=== PATIENT | female | born 1980 | race Caucasian/White ===

== ENCOUNTER 2016-11-29 05:57 | Observation (INO) | payer OTHER ==
[~2016-11-29] VITALS: Ht 154.9 cm; Wt 93.4 kg
[~2016-11-29 05:57] MED LIST: CELE200C PO; GABA300C5 PO; HYDR-3583 PO; IBUP800T23 PO; METF500T PO; MULT-135 PO; RANI150T PO; TIZA4CAP3 PO; TRIAPOW43; VITA100064 PO
[2016-11-29] MEDS ORDERED: BUPIVACAINE/EPINEPHRINE 0.5% 50 ML VIAL ONE (07:03)
[2016-11-29] MEDS ORDERED: VANCOMYCIN HCL 1000 MG VIAL ONE (07:03)
[2016-11-29] MEDS ORDERED: methylPREDNISolone ACETATE 40 MG/ML VIAL ONE (07:04)
[2016-11-29] MEDS ORDERED: THROMBIN (TOPICAL) 5,000 UNIT VIAL ONE (07:04)
[2016-11-29] MEDS ORDERED: GELFOAM SIZE 100 ONE (07:04)
[2016-11-29] MEDS ORDERED: ceFAZolin 2 GM PREMIX 50 ML ONE (07:04)
[2016-11-29] MEDS ORDERED: GENTAMICIN SULFATE 80 MG/2 ML VIAL ONE (07:05)
[2016-11-29] MEDS ORDERED: SODIUM CHLOR 0.9% 250 ML INJ 250 ML ONE (07:05)
[2016-11-29] MEDS ORDERED: OXYC15TA PO (07:08)
[2016-11-29 07:09] VITALS: BP 116/68; PULSE 60; RESP 16; TEMP 98; O2SAT 99
[2016-11-29] MEDS: LACTATED RINGER'S 1000 ML IV SCH (07:10)
[2016-11-29 07:20] LABS: BASOPHIL % 0.4 % (0.0-2.0); EOSINOPHIL # 0.2 TH/MM3 (0-0.4); EOSINOPHIL % 2.4 % (0.0-4.0); HEMATOCRIT 39.4 % (35.0-46.0); HEMO FLAGS DIFF FINAL; LYMPH % 30.8 % (9.0-44.0); LYMPHOCYTE # 2.8 TH/MM3 (1.0-4.8); MEAN CELL VOLUME 91.2 FL (80.0-100.0); MEAN CORPUSCULAR HEMOGLOBIN 31.9 PG (27.0-34.0); MEAN CORPUSCULAR HGB CONC 34.9 % (32.0-36.0); MONO % 10.8 % (0.0-8.0); NEUT % 55.6 % (16.0-70.0); PLATELET COUNT 413 TH/MM3 (150-450); RED BLOOD COUNT 4.32 MIL/MM3 (4.00-5.30); RED CELL DISTRIBUTION WIDTH 12.9 % (11.6-17.2)
[2016-11-29] MEDS ORDERED: METOPROLOL TARTRATE 25 MG TAB PO PRN (07:30)
[2016-11-29] MEDS ORDERED: SODIUM CHLORID 0.9% 500 ML IV SCH (07:30)
[2016-11-29] MEDS ORDERED: INSULIN HUMAN REGULAR 1,000 UNITS/10 ML VIAL SQ PRN (07:30)
[2016-11-29 07:42] LABS: ALKALINE PHOSPHATASE 60 U/L (45-117); TOTAL BILIRUBIN ADULT 0.5 MG/DL (0.2-1.0)
[2016-11-29 07:44] LABS: ALT (GPT) 60 U/L (10-53); ANION GAP 9 MEQ/L (5-15); AST (GOT) 42 U/L (15-37); BLOOD UREA NITROGEN 10 MG/DL (7-18); CHLORIDE 105 MEQ/L (98-107); GLOMERULAR FILTRATION RATE 80 ML/MIN (>89); SODIUM (NA) 140 MEQ/L (136-145)
[2016-11-29] MEDS ORDERED: ACETAMINOPHEN 1000 MG/100 ML VIAL IV ONE (07:54)
[2016-11-29] MEDS ORDERED: fentaNYL CITRATE 250 MCG/5 ML AMP ONE ×2 (07:54→11:33)
[2016-11-29] MEDS ORDERED: FAMOTIDINE 20 MG/2 ML VIAL ONE (07:54)
[2016-11-29] MEDS ORDERED: MIDAZOLAM HCL 2 MG/2 ML VIAL ONE (07:54)
[2016-11-29 07:56] LABS: BACTERIA, URINE OCC /hpf; BLOOD, URINE TRACE (NEG); COMMENT (UR) CULT NOT INDICATED; CULTURE IF INDICATED CULT NOT INDICATED; GLUCOSE,URINE NEG (NEG); KETONE, URINE NEG (NEG); MUCUS URINE FEW /lpf (OCC); NITRITE,URINE NEG (NEG); PH, URINE 5.5 (5.0-8.5); SQUAMOUS EPITHELIAL CELL URINE 13 /hpf (0-5); URINE COLOR YELLOW (YELLW/STRAW)
[2016-11-29 08:02] LABS: POTASSIUM 3.9 MEQ/L (3.5-5.1)
[2016-11-29 08:07] LABS: APTT (PATIENT) 28.6 SEC (24.3-30.1); INTERNATIONAL NORMALIZED RATIO 0.9 RATIO; PROTHROMBIN TIME - PATIENT 10.3 SEC (9.8-11.6)
[2016-11-29] MEDS ORDERED: DO NOT ADM ANY ANTICOAGULANT DRUGS XX PRN (11:25)
--- NOTE | 2016-11-29 11:37 | RADRPT ---
EXAM DATE/TIME: 11/29/2016 09:09 [place] COMPARISON: No previous studies available for comparison. INDICATIONS : L5-S1 hemilaminectomy. Level localization. MEDICAL HISTORY : None. SURGICAL HISTORY : None. ENCOUNTER: Initial ACUITY: 1 day PAIN SCORE: Non-responsive. LOCATION: Lumbar spine. CONCLUSION: Metallic probe is directed at L4-L5. Get Lainez MD FACR on November 29, 2016 at 11:34 Board Certified Radiologist. This report was verified electronically.
[2016-11-29] MEDS ORDERED: *ONDANSETRON 4 MG VIAL PERIprocedural Use ONLY ONE (11:41)
[2016-11-29] MEDS ORDERED: MORPHINE SULFATE 4 MG/ML INJ IV PUSH PRN (11:45)
[2016-11-29] MEDS ORDERED: ACETAMINOPHEN/HYDROcodone 325 MG/10 MG TAB PO PRN (11:45)
[2016-11-29] MEDS ORDERED: ACETAMINOPHEN 325 MG TAB PO PRN (11:45)
[2016-11-29] MEDS ORDERED: SODIUM CHLORIDE 0.9% FLUSH 5 ML FLUSH IVF PRN (11:45)
[2016-11-29] MEDS ORDERED: HYDR-3583 PO (11:47)
--- NOTE | 2016-11-29 11:48 | PD.OP ---
Operative Report Date of Surgery: Nov 29, 2016 Preoperative Diagnosis: L5-S1 disk herniation Postoperative Diagnosis: L5-S1 disk herniation Procedure: Right L5-S1 hemilaminectomy and microdiscectomy Surgeon: Dominic Sanchez Park Attendant(s): Roxana Barton Operation and Findings: INDICATIONS FOR THE SURGICAL PROCEDURE Ms Calderon is a 36 year-old female who presented with intractable back pain and clinical evidence of right S1 lower extremity radiculopathy. SHe was found to have a disk herniation and extrusion significant stenosis with significant mass effect on the neural structures which correlated with her clinical symptoms. She failed maximum nonsurgical management including multiple modalities of conservative treatment as well as pain management interventions by an interventional pain specialist. A surgical decompression were indicated as a last resort. The [id number] details of the procedure, indications, alternatives, risks and potential complications were fully discussed with the patient. The patient fully understood. All the questions were answered. No guarantees were given. The patient voiced requesting the procedure and signed informed consents. He was offered the alternative of delaying the procedure and continuing with nonsurgical management. DETAILS OF THE SURGICAL PROCEDURE After the induction of general anesthesia, endotracheal intubation was performed. A Oneill catheter, bilateral COOKIE hose and sequential compression devices were placed and kept throughout the procedure. The patient was positioned prone on a Wesly table over a Scott frame. All pressure points were carefully padded with eggcrate mattress. The eyes were tapped shut after ointment was applied by the anesthesiologist to prevent corneal abrasion. A Lor hugger was placed over the exposed lower body to maintain control of the core body temperature. The lower lumbar region was prepped and draped in the usual sterile fashion. A spinal needle was placed for localization and an x- ray performed with a C-arm. A skin incision was made in the midline over the spinous processes L5-S1 with a #10 blade. Small subcutaneous bleeders were controlled with a bipolar and the dissection was carried out through the lumbar fascia exposing the spinous processes. A subperiosteal dissection was performed with a Cornelius elevator and a Bovie over the L5-S1 spinous process lamina and facets on the right side. A microdiscectomy self-retaining retractor was placed on the incision and an x- ray was obtained with an instrument placed underneath the lamina. At this point in the procedure the operating microscope was draped in the usual sterile fashion and brought to the field. The rest of the surgical procedure was performed using microsurgical dissection technique with exception of the closure. Once the level was confirmed, a decompressive laminectomy was performed at L5- S1 on the right side, using the TPS drill with an AM-8 drill bit. A medial facetectomy was performed and the superior free border of the ligamentum flavum was dissected with a ligament dissector and removed with a thin footplate 2 mm Kerrison The medial facetectomy allowed me to expose the right S1 nerve root, which was identified and followed towards its exit in the foramen. Epidural veins located laterally to the dural sac were coagulated with a bipolar and incised with microscissors. Gentle medial retraction of the dural sac allowed inspection of the disc space. The patient had a disc herniation, causing mass effect over the exiting nerve root. The annulus fibrosus of the disc was coagulated with the bipolar and incised with an 11 blade. The extruded disc was carefully dissected from the surrounding tissue and removed with pituitary forceps. Then, a microdiscectomy was carried out in the standard fashion using straight and up-biting pituitary forceps. A good decompression of the dural sac and nerve root was achieved. The axila and exit of the nerve root was inspected for residual disc fragments and hemostasis was secured with the bipolar. The incision was irrigated with a large amount of saline solution. A Valsalva maneuver failed to show any cerebrospinal fluid leak or bleeding. The decompression was assessed again and found to be satisfactory. 4m of Depomedrol was left over the epidural space. The incision was then closed in layers. The fascia was closed with 0 Vicryl sutures in an interrupted fashion. The superficial fascia was closed with 0 Vicryl sutures. The fascia was infiltrated with 0.5% Marcaine with epinephrine 1:100,000 dilution. The subcutaneous tissue was irrigated then closed with 0 Vicryl and 3-0 Vicryl. The skin was closed with 4-0 running subcuticular Vicryl. Dermabond was applied to the skin. A sterile dressing was applied. At the end of the procedure, the sponge, needle and instrument counts were all correct. Estimated blood loss was less than 50 cc. No blood transfusion was given. No intraoperative complications occurred. The patient received prophylactic antibiotics. The patient was then extubated and transferred to the recovery room in stable condition. Dominic Sanchez MD Nov 29, 2016 11:48
[2016-11-29] MEDS ORDERED: MORPHINE SULFATE 8 MG/ML INJ IV PUSH ONE (11:49)
[2016-11-29] MEDS ORDERED: *morphine SULFATE 8 MG/ML PERIprocedure ONLY ONE ×2 (12:06→12:24)
[2016-11-29] MEDS: NS + KCL 20 MEQ INJ 1,000 ML IV SCH ×2 (12:32→20:03)
[2016-11-29] MEDS ORDERED: ONDANSETRON HCL 4 MG/2 ML VIAL IV PUSH ONE (12:52)
[2016-11-29] MEDS ORDERED: NEOSTIGMINE 3 MG/3 ML SYR IV ONE (12:52)
[2016-11-29] MEDS ORDERED: PROPOFOL 200 MG/20 ML AMP IV ONE (12:52)
[2016-11-29] MEDS ORDERED: LACTATED RINGER'S 1000 ML INJ 1,000 ML IV ONE (12:52)
[2016-11-29] MEDS ORDERED: *HYDROmorphone PF 1 MG VIAL PERIprocedural Use ONLY ONE (13:35)
[2016-11-29] MEDS: MORPHINE SULFATE 4 MG/ML INJ IV PUSH PRN ×2 (15:42→19:58)
[2016-11-29] MEDS: ceFAZolin 2 GM PREMIX 50 ML IV SCH (17:00)
[2016-11-29] MEDS: ACETAMINOPHEN/HYDROcodone 325 MG/10 MG TAB PO PRN ×2 (17:05→21:57)
[2016-11-29 18:45] VITALS: BP 109/60; PULSE 80; RESP 16; TEMP 98.7; O2SAT 97
[2016-11-29] MEDS: SODIUM CHLORIDE 0.9% FLUSH 5 ML FLUSH IVF SCH (19:59)
[2016-11-29] MEDS: DOCUSATE SODIUM 100 MG CAP PO SCH (19:59)
[2016-11-29 20:00] VITALS: BP 109/60; PULSE 80; RESP 16; TEMP 98.7; O2SAT 97
[2016-11-30] VITALS: BP 112/69; PULSE 77; RESP 16; TEMP 98; O2SAT 97
[2016-11-30] MEDS: ceFAZolin 2 GM PREMIX 50 ML IV SCH ×2 (00:40→08:32)
[2016-11-30] MEDS: ACETAMINOPHEN/HYDROcodone 325 MG/10 MG TAB PO PRN ×3 (02:21→11:39)
[2016-11-30 04:55] VITALS: BP 101/63; PULSE 54; RESP 17; TEMP 97.8; O2SAT 97
[2016-11-30] MEDS ORDERED: FAMOTIDINE 20 MG TAB PO SCH (06:00)
[2016-11-30] MEDS: LACTATED RINGER'S 1000 ML IV SCH (07:30)
[2016-11-30 08:00] VITALS: BP 101/64; PULSE 58; RESP 18; TEMP 97.8; O2SAT 95
[2016-11-30] MEDS: NS + KCL 20 MEQ INJ 1,000 ML IV SCH (08:33)
[2016-11-30] MEDS: SODIUM CHLORIDE 0.9% FLUSH 5 ML FLUSH IVF SCH (08:33)
[2016-11-30] MEDS: DOCUSATE SODIUM 100 MG CAP PO SCH (08:34)
[2016-11-30] MEDS ORDERED: PANTOPRAZOLE SOD 40 MG DELAYED RELEASE TAB PO SCH (09:00)
--- NOTE | 2016-11-30 11:50 | HHI.DCPOC ---
Discharge Care Plan Diagnosis: (1) Status post laminectomy Goals to Promote Your Health * To prevent worsening of your condition and complications * To maintain your health at the optimal level Directions to Meet Your Goals Take your medications as prescribed Follow your dietary instruction Follow activity as directed Keep your appointments as scheduled Take your immunizations and boosters as scheduled If your symptoms worsen call your PCP, if no PCP go to Urgent Care Center or Emergency Room Smoking is Dangerous to Your Health. Avoid second hand smoke Call the 24-hour hour crisis hotline for domestic abuse at Carolina Sepulveda Nov 30, 2016 11:50
--- NOTE | 2016-11-30 11:54 | HHI.DS ---
Discharge Summary Admission Date Nov 29, 2016 at 12:20 Discharge Date: Nov 30, 2016 Admitting Diagnosis s/p lumbar laminectomy (1) Status post laminectomy Brief History Ms Calderon is a 36 year-old female who presented with intractable back pain and clinical evidence of right S1 lower extremity radiculopathy. She was found to have a disk herniation and extrusion significant stenosis with significant mass effect on the neural structures which correlated with her clinical symptoms. She failed maximum nonsurgical management including multiple modalities of conservative treatment as well as pain management interventions by an interventional pain specialist. A surgical decompression were indicated as a last resort. CBC/BMP: 11/29/16 0705 11/29/16 0705 Significant Findings Laboratory Tests Test 11/29/16 11/29/16 07:05 07:30 Mean Platelet Volume 6.6 FL (7.0-11.0) Monocytes (%) (Auto) 10.8 % (0.0-8.0) Monocytes # (Auto) 1.0 TH/MM3 (0-0.9) Estimat Glomerular Filtration 80 ML/MIN (>89) Rate Aspartate Amino Transf 42 U/L (15-37) (AST/SGOT) Alanine Aminotransferase 60 U/L (10-53) (ALT/SGPT) Urine Turbidity HAZY (CLEAR) Urine Occult Blood TRACE (NEG) Urine Bacteria OCC /hpf (NONE) Urine Mucus FEW /lpf (OCC) PE at Discharge Ms. Vo is alert and oriented, in no apparent distress. Speech is fluent. Mentation intact. Cranial nerve examination: pupils to be equal, round and reactive to light. Extra-ocular movements are intact. Facial motor are normal and symmetrical. Muscle strength is 5/5 in the upper extremities. 5/5 to both iliopsoas, quadriceps, hamstrings, plantarflexion and dorsiflexion in lower extremities. Respiratory: clear, nonlabored Hospital Course Ms. Calderon is a 36 year old female who underwent a right L5-S1 hemilaminectomy and microdiscectomy on Nov 29, 2016. Her surgery went well without complications. Her radicular pain has improved, she still has some residual numbness on the right foot. She is stable for discharge. Wound care, activity restrictions, and signs and symptoms to watch for were discussed. Patient also seen by Dr. Sanchez. Pt Condition on Discharge: Stable Discharge Disposition: Discharge Home Discharge Instructions DIET: Follow Instructions for: Heart Healthy Diet ACTIVITIES You can perform: Weight Bearing As Ashwin ADDITIONAL Activity Instructio: Avoid strenuous activities, heavy lifting, overhead activities, repetitive bending, twisting, pushing, pulling or any activities which might result in stress over the spine. Avoid situtation that will put at risk for falls. Use assistive device as needed for walking. Wear lumbar brace when out of bed. Changed Medications: Hydrocodone-Acetaminophen (Hydrocodone-Acetaminophen) 10-325 mg Tab 1 TAB PO Q8HR PRN PAIN #62 Ref 0 TAB (Changed from: Q4H) Continued Medications: Celecoxib (Celebrex) 200 Mg Cap 200 MG PO DAILY Pain Management Ref 0 CAP Cholecalciferol (Vitamin D) 1,000 Unit Tab 2000 UNITS PO BID Nutritional Supplement #1 Ref 0 BOTTLE Gabapentin (Gabapentin) 300 Mg Cap 300 MG PO TID #60 Ref 0 CAP Ibuprofen (Ibuprofen) 800 Mg Tab 800 MG PO Q6HR PRN PAIN #40 Ref 0 TAB Metformin (Metformin) 500 Mg Tab 500 MG PO BIDPC With meals Blood Sugar Management #60 Ref 0 TAB Multiple Vitamin (Multi Vitamin) 1 Tab Tab 1 TAB PO DAILY TAB Oxycodone (Oxycodone) 15 Mg Tab 15 MG PO BID PRN PAIN Ref 0 TAB Ranitidine (Ranitidine) 150 Mg Tab 150 MG PO DAILY Heartburn Management #30 Ref 0 TAB Tizanidine (Tizanidine) 4 Mg Cap 4 MG PO TID Muscle Spasm Ref 0 CAP Triamterene (Triamterene) 1 Pow Pow 37.5 MG Carolina Sepulveda Nov 30, 2016 11:54
[2016-11-30 12:00] VITALS: BP 108/70; PULSE 55; RESP 20; TEMP 97.6; O2SAT 98
[2016-12-19] MEDS ORDERED: CEPH-460 PO (11:37)
[2016-12-19] MEDS ORDERED: DIFL50TA PO (11:37)
[2017-01-23] MEDS ORDERED: TIZA2TAB PO (10:16)
== END 2016-11-30 12:44 | disposition home or self-care (01) ==
LOC: HSDC 05:57 → N06B 12:20
PROVIDERS: ADMIT Neurological Surgery; ATTEND Neurological Surgery
DX: M51.17 Intervertebral disc disorders with radiculopathy, lumbosacral region (principal)
CPT/HCPCS: 00630; 63030; 72020; 76000; 80053; 81001; 85025; 85610; 85730; 86850; 86900; 86901; 94150; 97161; G0378; J0131; J0690; J1030; J1170; J1580; J2250; J2270; J2405; J2710; J3010; J3370; J3480; J7050; J7120; L0627